=== PATIENT | male | born 1935 | race Caucasian/White ===

== ENCOUNTER 2019-07-06 21:34 | Emergency (ER) | payer MEDICARE, OTHER ==
[2019-07-06] MEDS ORDERED: Diphtheria,Pertussis(Acell),Tetanus Vaccine 0.5 ML Syringe IM ONE (21:42)
--- NOTE | 2019-07-06 22:28 | CT ---
INDICATION: Fall TECHNIQUE: CT head without contrast. COMPARISON: None FINDINGS: CSF spaces: Within normal limits for age. Brain parenchyma: The sheehan-white differentiation is normal. No sign of mass, hemorrhage, or midline shift. Periventricular white matter changes consistent chronic microvascular disease. Diffuse volume loss. Skull base and calvarium: The visualized paranasal sinuses and mastoid air cells demonstrate no acute or significant findings. The visualized orbits are grossly unremarkable. No skull fractures. IMPRESSION: Atraumatic appearance of the brain. Dictated by Avel Meyers MD @ 07/06/2019 10:27:18 PM Please note that all CT scans at this facility use dose modulation, iterative reconstruction, and/or weight-based dosing when appropriate to reduce radiation dose to as low as reasonably achievable. Dictated by: Avel Meyers MD @ 07/06/2019 22:27:22 (Electronically Signed)
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
== END 2019-07-06 23:56 | disposition home or self-care (01) ==
LOC: MW.ED 21:34
DX: S00.03XA Contusion of scalp, initial encounter (principal); S00.81XA Abrasion of other part of head, initial encounter; S50.812A Abrasion of left forearm, initial encounter; S50.811A Abrasion of right forearm, initial encounter; W19.XXXA Unspecified fall, initial encounter
CPT/HCPCS: 70450; 70450-26; 90471; 90715; 99284; 99284-25